=== PATIENT | female | born 1990 | race Caucasian/White ===

== ENCOUNTER 2016-11-04 18:47 | Emergency (ER) | payer SELFPAY ==
[2016-11-04 20:17] VITALS: BP 137/90
== END 2016-11-04 20:17 | disposition home or self-care (01) ==
LOC: ED 18:47
DX: S80.211A Abrasion, right knee, initial encounter (principal); S90.811A Abrasion, right foot, initial encounter; V09.9XXA Pedestrian injured in unspecified transport accident, initial encounter; Y93.89 Activity, other specified; Y92.89 Other specified places as the place of occurrence of the external cause; Y99.8 Other external cause status